=== PATIENT | male | born 1995 | race Caucasian/White ===

== ENCOUNTER 2017-12-28 05:27 | Day surgery (SDC) | payer OTHER ==
[~2017-12-28] VITALS: Ht 172.7 cm; Wt 75.7 kg
--- NOTE | ~2017-12-28 | O ---
[facility] [place] [address] OPERATIVE REPORT Name: EUGENIONATALY Room #: DEP [facility]..#: [id number] Admission: 12/28/17 Attend Phys: Sonu Fernandez MD Discharge: 12/28/17 Date of : 89 Report #: [id number] THIS REPORT FOR: //name// CC: MAX physician/PCP Sonu Fernandez DATE OF SERVICE: 12/28/2017 SERVICE: Orthopedics. FACILITY: [facility]. SURGEON: Sonu Fernandez MD CHIEF OF FIELD OPERATIONS: None. PREOPERATIVE DIAGNOSES: 1. Right knee anterior cruciate ligament rupture. 2. Right knee lateral meniscus tear. POSTOPERATIVE DIAGNOSES: 1. Right knee anterior cruciate ligament rupture. 2. Right knee lateral meniscus tear. PROCEDURES: 1. Right knee arthroscopic ACL reconstruction with quadriceps tendon autograft. 2. Right knee arthroscopic lateral meniscus repair. COMPLICATIONS: None. DRAINS: None. SPECIMENS: None. ANESTHESIA TYPE: General with regional. FINDINGS: 1. ACL tear reconstructed with quad tendon autograft with Arthrex cortical button on the femoral side and interference screw with backup SwiveLock fixation on the tibial side. 2. Anterior horn radial tear, treated with a single 2-0 FiberWire in a orfv-iv-lcli fashion. This was a partial thickness high-grade tear. 3. Intraarticular structures otherwise normal. 4. Postoperative protocol: Four weeks weightbearing as tolerated with the brace holding the knee in extension with crutches, then he can progress out of the brace and off crutches over the next 2 weeks as tolerated and full range of [facility] [address] [place] [address] OPERATIVE REPORT Name: NATALY BECKER Room #: DEP [facility] M.R.#: [id number] Admission: 12/28/17 Attend Phys: Sonu Fernandez MD Discharge: 12/28/17 Date of : 89 Report #: [id number] motion as tolerated allowed beginning postop day #1. HISTORY AND INDICATIONS: The patient is a 22-year-old gentleman who sustained a sports injury to the right knee that resulted in an ACL tear. We treated him with prehab to restore range of motion and function. He did have abnormalities of the menisci including both the lateral and medial. We made plans for debridement versus nonsurgical treatment versus meniscal repair for the meniscal injury and plans for ACL reconstruction with autograft. Risks, benefits, alternatives and indication for surgery discussed with him in detail. Risks include but not limited to pain, bleeding, infection, injury to nerves or blood vessels, persistent pain despite surgical intervention, failure of any repairs, reconstruction, progression of any preexisting chondral injury, stiffness, need for further surgery as well as complications related to anesthesia such as stroke, heart attack, pulmonary complications, thromboembolic disease and . Despite these risks, he wished to proceed. DESCRIPTION OF PROCEDURE: After the right leg was correctly identified as the operative extremity, the patient underwent placement of regional nerve block. He was then taken to the operating room and placed supine and general anesthesia was induced without complication. He was padded appropriately. Tourniquet was applied to right thigh. Total tourniquet time was 119 minutes. Right leg was prepped and draped in sterile fashion. Time-out procedure was performed. Esmarch was used to exsanguinate. Tourniquet was inflated to 250 mmHg. A 2.5 cm incision was made based off his superior pole of patella. Dissection was taken down to the quadriceps tendon where a 10.5 mm x 75-mm graft was taken from the central portion in a partial thickness fashion and then the defect was closed with an 0 Vicryl and then the skin was closed with 2-0 Vicryl followed by running subcuticular 3-0 Monocryl. Standard anterolateral viewing portal was established followed by an anteromedial working portal. Diagnostic arthroscopy was performed. There were no loose bodies. The patellofemoral joint was normal. The lateral and medial gutters were without loose body. The medial compartment was carefully evaluated and was normal. The cartilage was normal. The meniscus was normal. The abnormality of the meniscus on the medial compartment that was noted on the MRI was just an artifact from some buckling of the meniscus, but otherwise was normal. There was a lateral wall sign and a torn ACL with a visible stump. Then the leg was placed in a [id number] position to allow visualization of the lateral compartment. The previous posterior horn lateral meniscus tear that was identified on the MRI for the most part healed and there was a partial thickness component measuring about 6 mm in length in the posterior horn. This was stable to probing and was not indicated for repair as this is a stable injury pattern. The body had a small inner rim radial tear that was treated simply with debridement with the [facility] [address] [place] [address] OPERATIVE REPORT Name: EUGENIO,NATALY Room #: DEP [facility] Neeraj#: [id number] Admission: 12/28/17 Attend Phys: Sonu Fernandez MD Discharge: 12/28/17 Date of : 89 Report #: [id number] shaver to a stable perimeter. This was only about the inner 5% to 10% at the midsubstance of the body, and there was no other extension peripherally; however, there was a lateral meniscus tear at the anterior horn and this was radial in its orientation. The main portion and the most anterior portion were both still affixed to the tibia, it was full thickness, but incomplete. I wanted to ensure that it did not propagate and become full thickness complete and unstable at the anterior root insertion and so a spectrum needle suture passer was used to pass a suture through the anterior horn portion that was intact with the body and then an 18-gauge spinal needle was used to pass another PDS through the anterior horn residual segment that was still fixed at the anterior root. Then a 2-0 FiberWire was then passed in a cerclage fashion to close the radial tear around these two locations and a good secure repair was felt to be achieved. This is far anterior and will not be affected by flexion in my mind and so he can have range of motion as tolerated. I would like to protect his weightbearing for 4 weeks while this heals. A 10.5 mm arthroscopy FlipCutter was then utilized to create a 25-mm socket on the femur and then a 10 mm canal was drilled on the tibia as well with the guide and after they were confirmed to be placed in the anatomic position. The graft was then passed into the femoral side, seated within the socket and then a cortical button was tied over the lateral cortex with a total of 4 limbs of LabralTape passed for good secure fixation with 2 knots from the 4 sutures. The knee was then cycled with tension held on the graft and then a 10 mm x 28-mm Arthrex interference screw was then placed between the two Y limbs of the graft on the tibial side and then a 4.7 x 5 mm SwiveLock was used for backup fixation on the tibia. The Chase was normal at this point. The wounds were irrigated. Final photographs were taken. Arthroscopic effusion was drained. The deep layers closed with 0 Vicryl. Skin was closed with 2-0 Vicryl followed by running subcuticular 3-0 Monocryl. Sterile dressings applied followed by compression stocking. The patient was awakened from anesthesia and taken to recovery room in stable condition. There were no complications and all counts were recorded as correct. <ELECTRONICALLY SIGNED> By: Sonu Fernandez MD 12/28/17 1824 [id number] Sonu Fernandez MD /nt
[2017-12-28 09:55] VITALS: BP 131/74
[2017-12-28 14:55] VITALS: BP 131/74
== END 2017-12-28 16:00 | disposition home or self-care (01) ==
LOC: OR 05:27 → TBA 05:28 → OR 12:03
DX: S89.91XA Unspecified injury of right lower leg, initial encounter (principal); Y93.79 Activity, other specified sports and athletics; Y99.9 Unspecified external cause status; Z98.890 Other specified postprocedural states; Y92.89 Other specified places as the place of occurrence of the external cause
CPT/HCPCS: 50010; 50101; 50386; 50405; 51038; 51320; 51331; 52001; 54170; 55430; 56524; 56525; 56527; 62110; 62900; 70005